=== PATIENT | female | born 1980 | race Caucasian/White ===

== ENCOUNTER 2019-12-16 12:48 | Inpatient (IN) ==
[2019-12-16] MEDS ORDERED: Naloxone 0.4 MG/ML INJ IVP PRN (15:34)
[2019-12-16] MEDS ORDERED: Perflutren Lipid Microsphere 1.3 ML in 0.9 % Sodium Chloride 8.7 ML IVP PRN (15:36)
[2019-12-16] MEDS ORDERED: Ondansetron 4 MG/2 ML VIAL IVP ONE (15:36)
[2019-12-16] MEDS ORDERED: Nitroglycerin 0.4 MG TAB.SUBL SL PRN (15:36)
[2019-12-16] MEDS ORDERED: Isovue-370 500 ML BOTTLE IVP ONE (15:57)
[2019-12-16] MEDS ORDERED: *HR* FentaNYL (PF) 100 MCG/2 ML VIAL IVP PRN (16:59)
[2019-12-16] MEDS ORDERED: *HR* Heparin 5,000 UNIT/ML VIAL SQ SCH (18:00)
[2019-12-16] MEDS ORDERED: Morphine Sulfate 2 MG/ML SYRINGE IVP ONE (19:49)
[2019-12-16] MEDS ORDERED: *HR* Heparin 5,000 UNIT/ML VIAL IVP PRN ×2 (22:12)
[2019-12-16] MEDS ORDERED: *HR* Heparin 5,000 UNIT/ML VIAL IVP ONE (22:12)
[2019-12-16] MEDS ORDERED: Heparin 25,000UNIT/250ML 1/2NS 25,000 UNIT/250 ML IV.SOLN IVC SCH (22:15)
[2019-12-17 01:50] LABS: Hematocrit 37.7 % (35.3-44.9); Hemoglobin 12.3 g/dL (11.5-15.4); Mean Corpuscular HGB Conc 32.6 g/dL (31.6-35.5); Mean Corpuscular Hemoglobin 29.3 pg (28.0-33.3); Mean Corpuscular Volume 89.8 fL (83.0-100.0); Platelet Count 221 K/mcL (140-400); Red Cell Distribution Width 13.7 % (11.5-14.5); White Blood Count 9.4 K/mcL (4.3-11.1)
[2019-12-17 02:00] LABS: Heparin anti-factor XA UFH 0.37 IU/mL (0.30-0.70); Prothrombin Time 11.9 Seconds (9.4-12.1)
[2019-12-17 02:07] LABS: Calcium 8.8 mg/dL (8.6-10.3); Carbon Dioxide 24 mEq/L (23-29); Chloride 105 mEq/L (98-107); Chol/HDL Ratio 4.4 (0-4.9); Glucose 103 mg/dL (70-105); Potassium 3.8 mEq/L (3.5-5.1); Sodium 138 mEq/L (136-145); eGFR For African Americans > 60 (> 60); eGFR For Non-African Americans > 60 (> 60)
[2019-12-17 02:09] LABS: BUN/Creatinine Ratio 12 (6-26); Blood Urea Nitrogen 10 mg/dL (6-20); Osmolality,Calculated 285 (280-300)
[2019-12-17 07:48] LABS: Estimated Average Glucose 117 mg/dl
[2019-12-17 08:24] LABS: Troponin I 2.81 ng/mL (< 0.04)
[2019-12-17] MEDS ORDERED: Aspirin 325 MG TABLET PO ONE (09:00)
[2019-12-17] MEDS ORDERED: lamoTRIgine 25 MG TABLET PO SCH (09:00)
[2019-12-17] MEDS: Gabapentin 300 MG CAPSULE PO SCH ×3 (09:04→20:41)
[2019-12-17] MEDS: Metoprolol 100 MG TABLET PO SCH ×2 (09:04→20:41)
[2019-12-17] MEDS ORDERED: Nitroglycerin 1,000 MCG/10 ML VIAL IV ONE (10:00)
[2019-12-17] MEDS ORDERED: ISOVUE-370 200 ML INFUS..BTL ONE ×2 (10:00→11:11)
[2019-12-17] MEDS ORDERED: 0.9 % Sodium Chloride 2,000 ML ONE (10:00)
[2019-12-17] MEDS ORDERED: *HR* Heparin 10,000 UNIT/10 ML VIAL ONE ×2 (10:00→10:59)
[2019-12-17] MEDS ORDERED: Heparin 1,000 UNITS/500 mL 500 ML ONE (10:00)
[2019-12-17] MEDS ORDERED: *HR* Midazolam HCl 2 MG/2 ML VIAL ONE (10:36)
[2019-12-17] MEDS ORDERED: *HR* FentaNYL (PF) 100 MCG/2 ML VIAL ONE ×2 (10:37→11:49)
[2019-12-17] MEDS ORDERED: *HR* Ticagrelor 90 MG TABLET ONE (10:48)
[2019-12-18 03:19] VITALS: BP 110/61
[2019-12-18] MEDS ORDERED: Nitroglycerin 0.4 MG TAB.SUBL SL PRN (10:35)
== END 2019-12-18 12:21 | disposition home or self-care (01) | DRG 174 ==
LOC: 3BNU → SUATTDRO 14:49 → MERGE 12-17 14:31
PROVIDERS: ADMIT Student in an Organized Health Care Education/Training Program; ATTEND Internal Medicine